=== PATIENT | male | born 1985 | race Caucasian/White ===

== ENCOUNTER → 2016-03-15 | Outpatient (REF) | payer OTHER | LOC: M SMT 11:00 | PROVIDERS: ATTEND Urology | DX: Z30.2 Encounter for sterilization (principal) ==

== ENCOUNTER → 2016-05-11 | Outpatient (REF) | payer OTHER ==
[2016-05-11 10:34] LABS: IMMMOTILE SPERM CENTRIFUGED ABSENT (ABSENT); IMMOTILE SPERM ABSENT (ABSENT); MOTILE SPERM ABSENT (ABSENT); MOTILE SPERM CENTRIFUGED ABSENT (ABSENT); SPERM ABNORMAL FORMS WBC'S NOTED
== END ==
LOC: M SMT 09:36
PROVIDERS: ATTEND Urology
DX: Z30.2 Encounter for sterilization (principal)